=== PATIENT | female | born 1935 | race Caucasian/White ===

== ENCOUNTER 2016-08-11 14:50 | Emergency (ER) | payer OTHER ==
[~2016-08-11] VITALS: Ht 152.4 cm; Wt 77.2 kg
--- NOTE | 2016-08-11 14:50 | NUR ---
Patient BIBA BLS, transferred to bed 5. RN evaluating patient at bedside.
[2016-08-11 14:54] VITALS: BP 137/76
--- NOTE | 2016-08-11 15:05 | NUR ---
81/F BIBA C/O MIGRAINE x 2 WEEKS. EMS STATES PT WAS SEEN AT [facility] ER 2 DAYS AGO. HX: BILAT KNEE SURGERY 4 YEARS AGO, SEIZURE . DENIES N/V/D; SKIN IS PINK/WARM/DRY; AAOX4 WITH EVEN AND STEADY GAIT; LUNGS CLEAR BL; HR EVEN AND REGULAR; PT DENIES ANY FEVER, CP, SOB, OR COUGH AT THIS TIME; PATIENT STATES PAIN OF 7/10 AT THIS TIME; VSS; PATIENT POSITIONED FOR COMFORT; HOB ELEVATED; BEDRAILS UP X2; BED DOWN. ER MD MADE AWARE OF PT STATUS.
--- NOTE | 2016-08-11 15:15 | NUR ---
AAO PT BEING ASSESS BY DR HENRY AT BEDSIDE ON MONITOR
[2016-08-11] MEDS ORDERED: HYDROcodone/APAP 5/325 MG 1 TAB TAB PO ONE (15:25)
[2016-08-11] MEDS ORDERED: LIDOCAINE 1% 500 MG/50 ML VIAL INJ ONE (15:25)
[2016-08-11 16:07] LABS: BASOPHILS # (AUTO) 0.2 K/uL (0.00-0.22); EOSINOPHILS # (AUTO) 0.1 K/uL (0-0.4); EOSINOPHILS % (AUTO) 1.2 % (0.0-4.0); HEMATOCRIT 40.3 % (36-48); HEMOGLOBIN 13.3 g/dL (12.0-16.0); LYMPHOCYTES # (AUTO) 1.6 K/uL (2.5-16.5); MEAN CORPUSCULAR HEMOGLOBIN 32 pg (27-31); MEAN CORPUSCULAR HGB CONC 33 g/dL (33-37); MEAN CORPUSCULAR VOLUME 97 fL (80-94); MONOCYTES # (AUTO) 0.4 K/uL (0.8-1.0); MONOCYTES % (AUTO) 7.8 % (1.7-9.3); NEUTROPHILS # (AUTO) 2.7 K/uL (1.8-7.7); PLATELET COUNT (AUTO) 219 K/uL (140-450); RED BLOOD CELL COUNT(AUTO) 4.14 MIL/uL (4.20-5.40); RED CELL DISTRIBUTION WIDTH 12.1 % (11.6-13.7)
[2016-08-11 16:26] LABS: PARTIAL THROMBOPLASTIN TIME 29.2 secs (22-35.6); PROTHROMBIN TIME 10.6 secs (10.8-13.4)
[2016-08-11 16:27] LABS: ANION GAP 11.4 (8-16); CALCIUM 9.2 mg/dL (8.5-10.1); CARBON DIOXIDE 27.7 mmol/L (21-32); CHLORIDE 103 mmol/L (98-107); CREATININE 0.9 mg/dL (0.6-1.3); GLUCOSE 110 mg/dL (74-106); POTASSIUM 3.1 mmol/L (3.5-5.1); SODIUM SERUM 139 mmol/L (136-145); UREA NITROGEN, BLOOD 19 mg/dL (7-18)
[2016-08-11 16:31] LABS: ALANINE AMINOTRANSFERASE 15 U/L (12-78); ALBUMIN 3.8 g/dL (3.4-5.0); ALKALINE PHOSPHATASE 83 U/L (46-116); ASPARTATE AMINOTRANSFERASE 17 U/L (15-37); TOTAL BILIRUBIN 0.4 mg/dL (0.0-1.0); TOTAL PROTEIN, SERUM 7.1 g/dL (6.4-8.2)
[2016-08-11 17:13] LABS: PHENYTOIN (DILANTIN) 8.8 ug/ml (10.0-20.0)
[2016-08-11] MEDS ORDERED: POTASSIUM CHLORIDE 10 MEQ TABER PO ONE (17:20)
--- NOTE | 2016-08-11 17:33 | NUR ---
Dr. Yu re-evaluating patient at bedside.
--- NOTE | 2016-08-11 18:00 | NUR ---
Patient discharged with v/s stable. Written and verbal after care instructions given and explained. Patient verbalized understanding. Wheel Chair Assisted to LOBBY WAITING FOR DAUGHTER TO PICKUP. SECURITY CALLED FOR SHOES FOR PT. All questions addressed prior to discharge. Advised to follow up with PMD.
[2016-08-11] MEDS ORDERED: KETOROLAC 60 MG/2 ML VIAL IM ONE (18:35)
--- NOTE | 2016-08-11 18:40 | NUR ---
PT REQUESTED FOR PAIN MEDICATION, TORADOL GIVEN IM PER DR MOORE Addendum: 08/11/16 at 1902 by SERENE AFTER WHEEL CHAIR ASSISTED TO THE [facility] PT C/O PAIN RT SHOULDER 12/01, CRYING, DR HENRY NOTIFIED, ORDERED TORADOL GIVEN IM RT GLUT MAX
[2016-08-11 18:55] VITALS: BP 144/84
--- NOTE | 2016-08-11 18:55 | NUR ---
Patient discharged with v/s stable. Written and verbal after care instructions given and explained. Patient verbalized understanding. Wheel Chair Assisted with to car. All questions addressed prior to discharge. Advised to follow up with PMD. @ 1840 GIVEN 60MG TORADOL IM RT GLUT MAX, D/T C/O PAIN POST MEDICATION 2/10 PAIN LEVEL SPO2 97% RA, HR 98, BP 144/84 D/C ASSISTED WITH WHEEL CHAIR TO CAR WITH DAUGHTER
== END 2016-08-11 18:00 | disposition home or self-care (01) ==
LOC: MED 14:50
DX: G44.209 Tension-type headache, unspecified, not intractable (principal); E87.6 Hypokalemia; M62.830 Muscle spasm of back; M19.90 Unspecified osteoarthritis, unspecified site; Z88.6 Allergy status to analgesic agent; Z96.653 Presence of artificial knee joint, bilateral
CPT/HCPCS: 20553; 36415; 71010; 80053; 80184; 80185; 84484; 85025; 85610; 85651; 85730; 93005; 96372; 99285; J1885; J2001; Q0092

== ENCOUNTER 2019-01-30 21:16 | Inpatient (IN) | payer OTHER, MEDICAID ==
[~2019-01-30] VITALS: Ht 152.4 cm; Wt 54.0 kg
--- NOTE | 2019-01-30 21:17 | NUR ---
PT MARIA M ORANTESS. TAKEN TO BED 4
[2019-01-30 21:21] VITALS: BP 140/90
--- NOTE | 2019-01-30 21:22 | NUR ---
Dr. Amaya evaluating patient at bedside.
--- NOTE | 2019-01-30 21:35 | NUR ---
ASSESSMENT COMPLETE AT THIS TIME. PATIENT SUPINE IN BED, HEAD OF BED ELEVATED 45 DEGREES. PATIENT HOOKED UP TO MONITOR. WILL MONITOR.
[2019-01-30] MEDS ORDERED: diphenhydrAMINE 12.5 MG/5 ML UDC PO ONE (21:50)
--- NOTE | 2019-01-30 21:50 | NUR ---
X-Ray at bedside.
--- NOTE | 2019-01-30 22:10 | NUR ---
LAB AT BEDSIDE.
[2019-01-30 22:27] LABS: BASOPHILS % (AUTO) 0.6 % (0.0-2.0); EOSINOPHILS # (AUTO) 0.1 K/uL (0-0.4); HEMOGLOBIN 11.3 g/dL (12.0-16.0); LYMPHOCYTES # (AUTO) 0.9 K/uL (2.5-16.5); LYMPHOCYTES % (AUTO) 19.1 % (20.5-51.1); MEAN CORPUSCULAR HEMOGLOBIN 35 pg (27-31); MEAN CORPUSCULAR HGB CONC 34 g/dL (33-37); MEAN CORPUSCULAR VOLUME 100.8 fL (80-94); MONOCYTES # (AUTO) 0.5 K/uL (0.8-1.0); MONOCYTES % (AUTO) 10.8 % (1.7-9.3); NEUTROPHILS # (AUTO) 3.4 K/uL (1.8-7.7); NEUTROPHILS % (AUTO) 68.5 % (42.2-75.2); PLATELET COUNT (AUTO) 288 K/uL (140-450); RED BLOOD CELL COUNT(AUTO) 3.28 MIL/uL (4.20-5.40); RED CELL DISTRIBUTION WIDTH 12.4 % (11.6-13.7); WHITE BLOOD COUNT (AUTO) 4.9 K/uL (4.8-10.8)
[2019-01-30 22:47] LABS: ALBUMIN 3.6 g/dL (3.4-5.0); ANION GAP 11.5 (8-16); ASPARTATE AMINOTRANSFERASE 13 U/L (15-37); CARBON DIOXIDE 29.3 mmol/L (21-32); CHLORIDE 91 mmol/L (98-107); CREATININE 0.8 mg/dL (0.6-1.3); GLUCOSE 105 mg/dL (74-106); POTASSIUM 3.8 mmol/L (3.5-5.1); SODIUM SERUM 128 mmol/L (136-145); TOTAL BILIRUBIN 0.5 mg/dL (0.0-1.0); UREA NITROGEN, BLOOD 27 mg/dL (7-18)
[2019-01-30 22:52] LABS: CREATINE KINASE MB 1.4 ng/mL (0-3.6)
[2019-01-30] MEDS ORDERED: NACL 0.9% 1,000 ML IV ONE (23:25)
[2019-01-30] MEDS ORDERED: DOCUSATE SODIUM 100 MG GELCAP PO PRN (23:30)
[2019-01-30] MEDS ORDERED: ACETAMINOPHEN 325 MG TAB PO PRN (23:30)
[2019-01-30] MEDS ORDERED: ONDANSETRON 4 MG/2 ML VIAL IM/IVP PRN (23:30)
[2019-01-31 00:03] LABS: PHOSPHORUS 4.5 mg/dL (2.5-4.9); THYROID STIMULATING HORMONE 0.73 uIU/mL (0.34-3.74)
[2019-01-31] MEDS ORDERED: ALBUTEROL SULFATE/IPRATROPIU 3 ML SOL IH PRN (00:15)
--- NOTE | 2019-01-31 00:27 | NUR ---
PATIENT ADMITTED TO BED 128-B IN THE TELE UNIT UNDER THE CARE OF DR. YIP. PATIENT TAKEN IN [facility] ON MONITOR WITH EMT. VSS DURING TRANSPORT. REPORT GIVEN TO ОЛЬГА SALDANA.
[2019-01-31] MEDS ORDERED: LOSA25TA32 PO (00:34)
[2019-01-31] MEDS ORDERED: ORE25 PO (00:34)
[2019-01-31] MEDS ORDERED: TRIA55SP11 NS (00:34)
[2019-01-31] MEDS ORDERED: ATRN INH (00:34)
[2019-01-31] MEDS ORDERED: LORA10TA19 PO (00:34)
[2019-01-31] MEDS ORDERED: [UNRECOGNIZED DRUG - CODE] PO (00:34)
[2019-01-31] MEDS ORDERED: MAG-17 PO (00:35)
[2019-01-31] MEDS ORDERED: ACET-2619 PO ×2 (00:35)
[2019-01-31] MEDS ORDERED: TRAM50TA1 PO (00:35)
[2019-01-31] MEDS ORDERED: BUDE1AER2 IH (00:35)
[2019-01-31] MEDS ORDERED: POTA10TE30 PO (00:35)
[2019-01-31] MEDS ORDERED: PARO10TA8 PO (00:35)
[2019-01-31] MEDS ORDERED: PHEN100C3 PO (00:35)
[2019-01-31] MEDS ORDERED: PB97.2 PO (00:36)
[2019-01-31 00:38] VITALS: BP 143/61
--- NOTE | 2019-01-31 00:40 | NUR ---
PT ADMITTED FROM ED. PATIENT AWAKE AND ALERT. PT ON 2L NC. NO SOB AT THIS TIME. PATIENT PLACED ON TELE MONITORING. SKIN IS INTACT. FALL PRECAUTIONS IN PLACE
[2019-01-31 00:49] LABS: PROTHROMBIN TIME 9.7 secs (10.8-13.4)
[2019-01-31] MEDS ORDERED: MELATONIN 3 MG TAB PO PRN (00:55)
[2019-01-31] MEDS: NACL 0.9% 1,000 ML IV SCH ×2 (00:59→04:29)
--- NOTE | 2019-01-31 01:00 | NUR ---
PT REPORTS OF LEG CRAMPS. MD IN THE ROOM EVALUATING THE PATIENT
[2019-01-31] MEDS ORDERED: ACETAMINOPHEN 325 MG TAB PO PRN (02:10)
[2019-01-31] MEDS ORDERED: PHENYTOIN 100 MG/2 ML VIAL IVP ONE (02:40)
[2019-01-31 02:57] LABS: ANION GAP 11.9 (8-16); CARBON DIOXIDE 26.4 mmol/L (21-32); CHLORIDE 95 mmol/L (98-107); CREATININE 0.7 mg/dL (0.6-1.3); GLUCOSE 103 mg/dL (74-106); POTASSIUM 3.3 mmol/L (3.5-5.1); SODIUM SERUM 130 mmol/L (136-145); UREA NITROGEN, BLOOD 20 mg/dL (7-18)
[2019-01-31] MEDS ORDERED: traZODone 50 MG TAB PO SCH (03:00)
[2019-01-31] MEDS ORDERED: NACL 0.9% 1,000 ML IV ONE (03:00)
[2019-01-31 03:22] LABS: APPEARANCE,URINE CLEAR (CLEAR); BILIRUBIN,URINE NEGATIVE (NEGATIVE); BLOOD, URINE NEGATIVE (NEGATIVE); COLOR,URINE YELLOW (YELLOW); LEUKOCYTE ESTERASE ,URINE NEGATIVE (NEGATIVE); NITRITE, URINE NEGATIVE (NEGATIVE); UGLUCOSE NEGATIVE (NEGATIVE)
[2019-01-31 03:47] LABS: BARBITURATE, URINE POS. ng/ml (NEG <=200); BENZODIAZEPINE, URINE NEG. ng/mL (NEG <=200); CANNABINOID, URINE NEG. ng/mL (NEG <=50); COCAINE, URINE NEG. ng/mL (NEG <=300); OPIATE, URINE NEG. ng/mL (NEG <=2000); PHENCYCLIDINE SCREEN,URINE NEG. ng/mL (NEG <=25)
[2019-01-31 04:00] VITALS: BP 147/67
[2019-01-31] MEDS ORDERED: PHENYTOIN 100 MG/2 ML VIAL IVP SCH (04:00)
[2019-01-31] MEDS ORDERED: traMADol 50 MG TAB PO PRN (06:00)
[2019-01-31] MEDS ORDERED: traMADol 50 MG TAB PO SCH (06:00)
[2019-01-31 06:06] LABS: BASOPHILS % (AUTO) 0.3 % (0.0-2.0); EOSINOPHILS # (AUTO) 0.1 K/uL (0-0.4); EOSINOPHILS % (AUTO) 1.3 % (0.0-4.0); HEMATOCRIT 30.7 % (36-48); HEMOGLOBIN 10.5 g/dL (12.0-16.0); LYMPHOCYTES # (AUTO) 0.8 K/uL (2.5-16.5); LYMPHOCYTES % (AUTO) 17.5 % (20.5-51.1); MEAN CORPUSCULAR HEMOGLOBIN 35 pg (27-31); MEAN CORPUSCULAR HGB CONC 34 g/dL (33-37); MEAN CORPUSCULAR VOLUME 101.2 fL (80-94); MONOCYTES # (AUTO) 0.4 K/uL (0.8-1.0); MONOCYTES % (AUTO) 7.8 % (1.7-9.3); NEUTROPHILS # (AUTO) 3.3 K/uL (1.8-7.7); NEUTROPHILS % (AUTO) 73.1 % (42.2-75.2); PLATELET COUNT (AUTO) 240 K/uL (140-450); RED BLOOD CELL COUNT(AUTO) 3.04 MIL/uL (4.20-5.40); RED CELL DISTRIBUTION WIDTH 12.9 % (11.6-13.7); WHITE BLOOD COUNT (AUTO) 4.5 K/uL (4.8-10.8)
[2019-01-31 06:19] LABS: MAGNESIUM 1.9 mg/dL (1.8-2.4); PHOSPHORUS 3.7 mg/dL (2.5-4.9)
[2019-01-31 06:21] LABS: CHOL/HDL RATIO 1.7 (1-4.5)
[2019-01-31 06:24] LABS: CARBON DIOXIDE 26.5 mmol/L (21-32); CHLORIDE 98 mmol/L (98-107); CREATININE 0.7 mg/dL (0.6-1.3); GLUCOSE 108 mg/dL (74-106); POTASSIUM 3.5 mmol/L (3.5-5.1); SODIUM SERUM 133 mmol/L (136-145); UREA NITROGEN, BLOOD 16 mg/dL (7-18)
[2019-01-31] MEDS: ALBUTEROL SULFATE/IPRATROPIU 3 ML SOL IH SCH ×3 (07:00→19:00)
--- NOTE | 2019-01-31 07:29 | NUR ---
PT REPORT GIVEN AT BEDSIDE. PATIENT ENDORSED IN STABLE CONDITION
--- NOTE | 2019-01-31 07:30 | NUR ---
RECIEVED PATIENT FROM CONE MACHINE OPERATOR NURSE. PATIENT IS SLEEPING AT THIS TIME. SLOVENIAN SPEAKING ONLY. SEIZURE PRECAUTION IN PLACE. NO SIGNS OF DISTRESS NOTED. RESPIRATIONS EVEN AND UNLABORED, ON 2L O2 VIA NC. IV LEFT AC RUNNING 0.9% NS AT 60 ML/HR. IV PATENT AND INTACT. SKIN INTACT. DIET MECHANICAL SOFT. BED IN LOW POSITION. CALL LIGHT WITHIN REACH. SIDE RAILS UP X2. WILL CONTINUE TO MONITOR.
[2019-01-31 08:00] VITALS: BP 138/55
[2019-01-31] MEDS: LORATADINE 10 MG TAB PO SCH (08:59)
[2019-01-31] MEDS: LOSARTAN 25 MG TAB PO SCH ×2 (08:59→20:27)
[2019-01-31] MEDS: PHENYTOIN 100 MG CAPER PO SCH ×3 (08:59→16:22)
[2019-01-31] MEDS: POTASSIUM CHLORIDE 10 MEQ TABER PO SCH (09:00)
[2019-01-31] MEDS ORDERED: HYDROCHLOROTHIAZIDE 25 MG TAB PO SCH (09:00)
[2019-01-31] MEDS ORDERED: DICLOFENAC 75 MG TABEC PO SCH (09:00)
--- NOTE | 2019-01-31 09:14 | NUR ---
ADMINISTERED MORNING MEDICATIONS. PATIENT IS EDUCATED ON MEDICATIONS AND SIDE EFFECTS. PATIENT TOLERATED WELL. BED IN LOW POSITION. CALL LIGHT WITHIN REACH. WILL CONTINUE TO MONITOR.
[2019-01-31] MEDS: PARoxetine 10 MG TAB PO SCH (09:18)
[2019-01-31] MEDS ORDERED: DICLOFENAC 25 MG TABEC PO SCH ×2 (09:25→10:00)
--- NOTE | 2019-01-31 09:59 | NUR ---
PATIENT HAS BEEN SCREENED AND CATEGORIZED HIGH NUTRITION RISK. PATIENT WILL BE SEEN WITHIN 1-2 DAYS OF ADMISSION. 01/31/19-02/01/[address]
--- NOTE | 2019-01-31 10:27 | NUR ---
PATIENT IS RESTING AT THIS TIME. NO COMPLAINTS OF PAIN. REQUESTED MORE BLANKETS. GIVEN WARM BLANKETS. WILL CONTINUE TO MONITOR. BED IN LOW POSITION. CALL LIGHT WITHIN REACH.
[2019-01-31 12:00] VITALS: BP 138/66
--- NOTE | 2019-01-31 12:27 | NUR ---
GIVEN DILANTIN PO. EXPLAINED PURPOSE AND SIDE EFFECTS. PATIENT TOLERATED WELL. WILL CONTINUE TO MONITOR. BED IN LOW POSITION. CALL LIGHT WITHIN REACH.
[2019-01-31] MEDS ORDERED: GABAPENTIN 300 MG CAP PO SCH (13:55)
--- NOTE | 2019-01-31 14:30 | NUR ---
PATIENT IS SLEEPING AT THIS TIME. NO SIGNS OF DISTRESS NOTED. WILL CONTINUE TO MONITOR.
[2019-01-31 16:00] VITALS: BP 131/67
[2019-01-31] MEDS: HYDROCHLOROTHIAZIDE 25 MG TAB PO SCH (16:24)
--- NOTE | 2019-01-31 16:26 | NUR ---
ADMINISTERED DILANTIN AND ORETIC PO. EXPLAINED INDICATIONS AND SIDE EFFECTS. PATIENT TOLERATED WELL. WILL CONTINUE TO MONITOR.
--- NOTE | 2019-01-31 18:38 | NUR ---
PATIENT IS SLEEPING AT THIS TIME. NO SIGNS OF DISTRESS NOTED. WILL CONTINUE TO MONITOR.
--- NOTE | 2019-01-31 19:15 | NUR ---
ENDORSED PT TO CYTOTECHNOLOGIST/CYTOLOGY SUPERVISOR NURSE FOR CONTINUITY OF CARE.
--- NOTE | 2019-01-31 19:16 | NUR ---
RECEIVED BEDSIDE REPORT FROM DAY RN. PT IS SLEEPING ON NC 2L O2. RESPIRATIONS ARE EQUAL AND UNLABORED. C/C SOB. PER RN SAT 97_99% ON RA NO C/C ON SOB THROUGHOUT SHIFT. IV ON LAC22G INFUSING NS AT 70M/H. SKIN IS INTACT. [facility] BUT ABLE TO SWALLOW PILLS. SAFETY MEASURES ARE IN PLACE. CALL LIGHT IS WITHIN REACH.
[2019-01-31 20:00] VITALS: BP 121/59
--- NOTE | 2019-01-31 20:27 | NUR ---
VITAL SIGNS ARE STABLE: 121/59 HR 78 RR18 99% ON 2L NC. PATIENT IS VERY LETHARGIC AND DIFFICULT TO WAKE UP. PATIENT OPEN EYES AND IS AAOX2. STATES, "QUE, QUIERO DORMIR." ADMINISTERED BRAD MEDICATIONS AND HELD DESYREL D/T LETHARGY.
[2019-01-31] MEDS: traZODone 50 MG TAB PO SCH (20:36)
--- NOTE | 2019-01-31 22:15 | NUR ---
PATIENT IS SLEEPING COMFORTABLY IN BED. CHEST RISE AND FALL. ALL SAFETY MEASURES ARE IN PLACE. WILL CONTINUE TO MONITOR.
[2019-02-01] VITALS: BP 112/50
[2019-02-01] MEDS: NACL 0.9% 1,000 ML IV SCH
--- NOTE | 2019-02-01 | NUR ---
VITAL SIGNS ARE WITHIN NORMAL LIMITS. NEW BAG OF IVF NOW INFUSING PER ORDERS. PATIENT WAS CLEANED AND REPOSITION FOR COMFORT. ALL NEEDS MET AT THIS TIME. SAFETY MEASURES ARE IN PLACE. CALL LIGHT IS WITHIN REACH.
--- NOTE | 2019-02-01 01:46 | NUR ---
PATIENT IS SLEEPING COMFORTABLY IN BED. CHEST RISE AND FALL. NO S/S OF DISTRESS. CALL LIGHT IS WITHIN REACH.
--- NOTE | 2019-02-01 03:45 | NUR ---
VITAL SIGNS ARE STABLE. SAFETY MEASURES ARE IN PLACE. CALL LIGHT IS WITHIN REACH
[2019-02-01 04:00] VITALS: BP 121/55
--- NOTE | 2019-02-01 04:00 | NUR ---
PATIENT VERY CONFUSED TRYING TO GET OUT OF BED. REORIENTED PATIENT TO ROOM AND STAFF. PT INSISTING TO GET UP AND WALK. PATIENT REMOVED GOWN, NC, AND ATTEMPT TO REMOVE IV. ASSIST PT TO LAY BACK IN BED. PT WAS CLEANED AND REPOSITION FOR COMFORT. BED ALARM ON. SAFETY MEASURES ARE IN PLACE. WILL CONTINUE TO MONITOR.
--- NOTE | 2019-02-01 05:00 | NUR ---
MOVED PATIENT TO ROOM 121B CLOSER TO NURSES STATION D/T CONFUSION AND ATTEMPTING TO GET OUT OF BED. PT TOLERATED WELL. ORIENTED PATIENT TO ROOM AND STAFF. BED ALARM IS ON. CALL LIGHT IS WITHIN REACH. WILL CONTINUE TO MONITOR.
[2019-02-01 06:10] LABS: MAGNESIUM 1.8 mg/dL (1.8-2.4)
[2019-02-01 06:20] LABS: T4 (THYROXINE) 7.8 ug/dL (4.5-12.0)
--- NOTE | 2019-02-01 06:20 | NUR ---
PATIENT STILL CONFUSED TRYING TO GET OUT OF BED REQUESTING TO CALL NICHUCK MCCALLIA. CALLED TRESA TO TRY AND CALM HER. TALKED TO NIECE AND EXPLAINED PT IS TOO WEAK TO WALK BUT DESPITE EXPLAINING TO PT SHE KEPT TRYING TO GET OUT OF BED. THEREFORE WE MOVED HER TO A ROOM CLOSER TO THE NURSES STATION, MAO VERBALIZED UNDERSTANDING AND EXPLAINED TO PT. PT IS MORE CALM AFTER SPEAKING WITH HER NIECE ON THE PHONE. DR. BARRAZA EXAMINE PT. PER PT STATES SHE DID NOT SLEEP ALL NIGHT. I EXPLAINED TO DOCTOR SHE WAS ASLEEP FROM BEGINNING OF MY SHIFT AT 1900 AND WOKE UP APPROX [phone]. SAFETY MEASURES ARE IN PLACE. CALL LIGHT IS WITHIN REACH.
[2019-02-01 06:47] LABS: EOSINOPHILS # (AUTO) 0.1 K/uL (0-0.4); EOSINOPHILS % (AUTO) 2.6 % (0.0-4.0); HEMOGLOBIN 10.3 g/dL (12.0-16.0); LYMPHOCYTES # (AUTO) 0.7 K/uL (2.5-16.5); MEAN CORPUSCULAR HEMOGLOBIN 36 pg (27-31); MEAN CORPUSCULAR HGB CONC 36 g/dL (33-37); MONOCYTES # (AUTO) 0.2 K/uL (0.8-1.0); MONOCYTES % (AUTO) 8.3 % (1.7-9.3); NEUTROPHILS # (AUTO) 1.8 K/uL (1.8-7.7); NEUTROPHILS % (AUTO) 63.1 % (42.2-75.2); PLATELET COUNT (AUTO) 251 K/uL (140-450); RED BLOOD CELL COUNT(AUTO) 2.85 MIL/uL (4.20-5.40); WHITE BLOOD COUNT (AUTO) 2.9 K/uL (4.8-10.8)
[2019-02-01 07:17] LABS: ANION GAP 11.7 (8-16); CARBON DIOXIDE 25.7 mmol/L (21-32); CHLORIDE 98 mmol/L (98-107); CREATININE 0.7 mg/dL (0.6-1.3); GLUCOSE 95 mg/dL (74-106); POTASSIUM 3.4 mmol/L (3.5-5.1); SODIUM SERUM 132 mmol/L (136-145)
--- NOTE | 2019-02-01 07:18 | NUR ---
GAVE BEDSIDE REPORT TO DAY RN. PT ENDORSED IN STABLE CONDITION.
--- NOTE | 2019-02-01 07:19 | NUR ---
RECEIVED PATIENT FROM TIRE STRIPPER NURSE. PATIENT IS AWAKE AND RESTING. AOX2 TO NAME AND DATE. NO SIGNS OF DISTRESS NOTED. PATIENT DENIES PAIN. VITAL SIGNS 118/73, HR 91, RR 18, TEMP 97.8 ORAL, O2SAT 97% RA. IV ON LEFT AC G 22 RUNNING 70ML/HR 0.9% NS. IV PATENT AND INTACT. SKIN INTACT NO EDEMA PRESENT. BOWEL SOUNDS PRESENT X2. CALL LIGHT WITHIN REACH. BED IN LOW POSITION. WILL CONTINUE TO MONITOR.
[2019-02-01 08:00] VITALS: BP 150/60
[2019-02-01 08:09] LABS: FOLIC ACID 10.9 ng/mL (>3.0)
[2019-02-01] MEDS ORDERED: traMADol 50 MG TAB PO PRN (08:17)
[2019-02-01] MEDS: ALBUTEROL SULFATE/IPRATROPIU 3 ML SOL IH SCH ×4 (08:39→20:09)
[2019-02-01 08:57] LABS: UREA NITROGEN, BLOOD 14 mg/dL (7-18)
[2019-02-01] MEDS: LORATADINE 10 MG TAB PO SCH (09:00)
[2019-02-01] MEDS: PHENYTOIN 100 MG CAPER PO SCH ×3 (09:00→16:52)
[2019-02-01] MEDS: POTASSIUM CHLORIDE 10 MEQ TABER PO SCH (09:00)
[2019-02-01] MEDS: GABAPENTIN 300 MG CAP PO SCH (09:01)
[2019-02-01] MEDS: LOSARTAN 25 MG TAB PO SCH ×2 (09:07→21:20)
[2019-02-01] MEDS: DICLOFENAC 25 MG TABEC PO SCH (09:08)
[2019-02-01] MEDS: PARoxetine 10 MG TAB PO SCH (09:12)
--- NOTE | 2019-02-01 09:16 | NUR ---
GIVEN MORNING MEDICATIONS. BP 124/65. HR 90. O2SAT 99% RA. EDUCATED PATIENTS ON PURPOSE AND SIDE EFFECTS. PATIENT VERBALIZED UNDERSTANDING. WILL CONTINUE TO MONITOR. CALL LIGHT WITHIN REACH. BED IN LOW POSITION.
[2019-02-01 12:00] VITALS: BP 120/58
--- NOTE | 2019-02-01 12:00 | NUR ---
PT EVALUATION WAS BEING DONE TO PT NOW, SEEN PT AMBULATING TO HALLWAY WITH THE ASSISTANCE OF THE PT AND WITH A STEADY GAIT. WILL MONITOR PT.
--- NOTE | 2019-02-01 12:21 | NUR ---
GIVEN DILATIN PO. EDUCATED PATIENT ON MEDICATION. PATIENT IS EATING AT THIS TIME. DENIES ANY PAIN. WILL CONTINUE TO MONITOR.
--- NOTE | 2019-02-01 14:05 | NUR ---
PATIENT IS RESTING AT THIS TIME. NO DISTRESS NOTED AT THIS TIME. WILL CONTINUE TO MONITOR.
--- NOTE | 2019-02-01 14:23 | NUR ---
02/01/19 RD INITIAL ASSESSMENT COMPLETED PLEASE REFER TO NUTRITION ASSESSMENT UNDER CARE ACTIVITY FOR ESTIMATED NUTRITIONAL NEEDS. 1. RECOMMEND NECTAR-THICKENED LIQUIDS PER SWALLOW EVALUATION 2. CONTINUE MECHANICAL SOFT NA 2GM WITH ENSURE TID 3. ENCOURAGE INCREASING PO INTAKE 4. RD TO FOLLOW-UP 2-3 DAYS, HIGH RISK [facility], ALEXA
[2019-02-01 16:00] VITALS: BP 118/49
[2019-02-01] MEDS: HYDROCHLOROTHIAZIDE 25 MG TAB PO SCH (16:54)
--- NOTE | 2019-02-01 16:55 | NUR ---
ADMINISTERED MEDICATIONS ORETIC AND DILANTIN. EDUCATED PATIENTS ON MEDICATIONS. VERBALIZED UNDERSTANDING. WILL CONTINUE TO MONITOR.
--- NOTE | 2019-02-01 18:00 | NUR ---
PATIENT IS REQUESTING FOR SLEEPING MEDICATION, HOWEVER, MEDICATION IS NOT DUE UNTIL 0900.
--- NOTE | 2019-02-01 19:10 | NUR ---
ENDORSED PATIENT TO BENEFITS CONSULTING ANALYST NURSE FOR CONTINUITY OF CARE. PATIENT IS IN STABLE CONDITION.
[2019-02-01 20:00] VITALS: BP 138/94
--- NOTE | 2019-02-01 20:00 | NUR ---
ASSUMED CARE. RECEIVED ALERT,CONFUSED. AFEBRILE, NOT IN ACUTE DISTRESS. NO PAIN OR DISCOMFORT NOTED. IV LINE NOTED TO BE OUT. WILL ESTABLISH A IV NEW LINE. SIDE RAILS PADDED FOR SEIZURE PRECAUTION. SAO2=96% ON ROOM AIR. RT AT BEDSIDE TO GIVE BREATHING TREATMENTS. SINUS RHYTHM AT 80'S/MINUTE ON THE MONITOR. VS STABLE, WILL CONTINUE TO MONITOR. NEEDS ATTENDED.
[2019-02-01] MEDS: traZODone 50 MG TAB PO SCH (21:19)
--- NOTE | 2019-02-01 21:22 | NUR ---
DUE MEDICATIONS GIVEN SCHEDULED.
--- NOTE | 2019-02-01 21:50 | NUR ---
GAUGE 20 IV LINE ESTABLISHED TO THE LEFT WRIST. IV FLUID NORMAL SALINE RESTARTED AT 70 ML/HR.
[2019-02-02] VITALS: BP 118/61
--- NOTE | 2019-02-02 | NUR ---
AWAKE, NOT IN ANY KIND OF DISTRESS. NO PAIN OR DISCOMFORT NOTED. SIDE RAILS UP, CALL LIGHT WITHIN REACH. KEPT WARM AND COMFORTABLE. VS REMAIN STABLE.
[2019-02-02] MEDS: NACL 0.9% 1,000 ML IV SCH ×2 (01:56→08:20)
[2019-02-02 04:00] VITALS: BP 143/53
--- NOTE | 2019-02-02 04:00 | NUR ---
AWAKE, NO SIGNIFICANT CHANGE. VS REMAIN STABLE. WILL CONTINUE TO MONITOR.
[2019-02-02 06:01] LABS: BASOPHILS % (AUTO) 0.5 % (0.0-2.0); EOSINOPHILS # (AUTO) 0.1 K/uL (0-0.4); EOSINOPHILS % (AUTO) 3.1 % (0.0-4.0); HEMATOCRIT 30.9 % (36-48); HEMOGLOBIN 10.5 g/dL (12.0-16.0); LYMPHOCYTES # (AUTO) 0.9 K/uL (2.5-16.5); LYMPHOCYTES % (AUTO) 26.6 % (20.5-51.1); MEAN CORPUSCULAR HEMOGLOBIN 35 pg (27-31); MEAN CORPUSCULAR HGB CONC 34 g/dL (33-37); MEAN CORPUSCULAR VOLUME 102.4 fL (80-94); MONOCYTES # (AUTO) 0.2 K/uL (0.8-1.0); MONOCYTES % (AUTO) 7.3 % (1.7-9.3); NEUTROPHILS # (AUTO) 2.1 K/uL (1.8-7.7); NEUTROPHILS % (AUTO) 62.5 % (42.2-75.2); PLATELET COUNT (AUTO) 231 K/uL (140-450); RED BLOOD CELL COUNT(AUTO) 3.01 MIL/uL (4.20-5.40); RED CELL DISTRIBUTION WIDTH 12.7 % (11.6-13.7); WHITE BLOOD COUNT (AUTO) 3.4 K/uL (4.8-10.8)
[2019-02-02 06:41] LABS: ANION GAP 9.8 (8-16); CHLORIDE 98 mmol/L (98-107); CREATININE 0.7 mg/dL (0.6-1.3); GLUCOSE 96 mg/dL (74-106); POTASSIUM 3.8 mmol/L (3.5-5.1); SODIUM SERUM 132 mmol/L (136-145); UREA NITROGEN, BLOOD 22 mg/dL (7-18)
--- NOTE | 2019-02-02 07:04 | NUR ---
ENDORSED CARE TO RACIEL NEVAREZ.
[2019-02-02 07:05] LABS: MAGNESIUM 1.9 mg/dL (1.8-2.4); PHOSPHORUS 3.1 mg/dL (2.5-4.9)
--- NOTE | 2019-02-02 07:12 | NUR ---
ENDORSED CARE TO AUBREY NEVAREZ.
--- NOTE | 2019-02-02 07:25 | NUR ---
REPORT RECEIVED FROM DINKEY MECHANIC NURSE FOR CONTINUATION OF CARE. BED IS IN LOWEST POSITION. PATIENT IS RESTING IN BED NO SIGNS OF DISTRESS NOTED. CALL LIGHT ON AND WITHIN REACH, WILL CONTINUE TO MONITOR.
[2019-02-02 08:00] VITALS: BP 114/54
[2019-02-02] MEDS: ALBUTEROL SULFATE/IPRATROPIU 3 ML SOL IH SCH ×2 (08:14→13:47)
[2019-02-02] MEDS: LOSARTAN 25 MG TAB PO SCH (08:44)
[2019-02-02] MEDS: PHENYTOIN 100 MG CAPER PO SCH ×3 (08:44→17:58)
[2019-02-02] MEDS: PARoxetine 10 MG TAB PO SCH (08:45)
[2019-02-02] MEDS: GABAPENTIN 300 MG CAP PO SCH (08:45)
[2019-02-02] MEDS: POTASSIUM CHLORIDE 10 MEQ TABER PO SCH (08:45)
[2019-02-02] MEDS: LORATADINE 10 MG TAB PO SCH (08:45)
[2019-02-02] MEDS: DICLOFENAC 25 MG TABEC PO SCH (08:51)
--- NOTE | 2019-02-02 09:15 | NUR ---
FREQUENT ROUNDING ON PT PT APPEARS STABLE AND IN NO APPARENT DISTRESS. ALL SAFETY MEASURES ARE IN PLACE WILL CONTINUE TO MONITOR.
--- NOTE | 2019-02-02 11:34 | NUR ---
FREQUENT ROUNDING ON PT PT APPEARS STABLE AND IN NO APPARENT DISTRESS. ALL SAFETY MEASURES ARE IN PLACE WILL CONTINUE TO MONITOR
[2019-02-02 12:00] VITALS: BP 120/50
--- NOTE | 2019-02-02 13:50 | NUR ---
FREQUENT ROUNDS MADE, BED IN LOW POSITION, CALL LIGHT ON AND WITHIN REACH. NO SIGNS OF DISTRESS NOTED. WILL CONTINUE TO MONITOR.
--- NOTE | 2019-02-02 14:24 | NUR ---
DC PLANNING PATIENT HAS A DC ORDER TO GO TO SNF FOR PHYSICAL THERAPY , DA[facility] AND CAN GO TO ROOM, #TO GIVE REPORT [phone] CALLED DAUGHTER RUSLAN NOTIFIED HER THAT [facility] IS ACCEPT[facility] HER MOTHER AND SINCE THEY ARE ARRANGING ROOM THEY WANT THE PT AFTER 7PM. RUSLAN IS OK WITH IT. Addendum: 02/02/19 at 1611 by Trish Bocanegra CM DC PLANNING: RECEIVED A CALL FROM [facility] PT CAN GO TO ROOM 122 BED 2 [facility] ARRANGED TRANSPORT WITH [place] [phone] LEAN COACH TIME AFTER 7 PM NOTIFIED RACIEL SALDANA.
--- NOTE | 2019-02-02 15:50 | NUR ---
NO SIGNS OF DISTRESS NOTED, PATIENT IS SLEEPING, OBSERVED CHEST RISE AND FALL. BED IN LOW POSITION, CALL LIGHT ON AND WITHIN REACH. WILL CONTINUE TO MONITOR. PATIENT TO DISCHARGE TO [facility] AFTER 7 PM.
--- NOTE | 2019-02-02 17:50 | NUR ---
NO SIGNS OF DISTRESS NOTED. CHEST RISE AND FALL OBSERVED.
[2019-02-02] MEDS: HYDROCHLOROTHIAZIDE 25 MG TAB PO SCH (17:59)
[2019-02-02 18:00] VITALS: BP 133/83
--- NOTE | 2019-02-02 19:34 | NUR ---
[facility] REMOVED IV BAND REMOVED IV IV TIP INTACT PT APPEARS STABLE AND IN NO APPARENT DISTRESS. ALL SAFETY MEASURES ARE IN PLACE. TRANSPORTED PT TO [facility] ROOM 122 BED 1.
== END 2019-02-02 19:25 | DRG 641 ==
LOC: MED 21:16 → MMU 23:33 → MTU 02-01 05:12
PROVIDERS: ADMIT General Practice; ATTEND General Practice
DX: E87.1 Hypo-osmolality and hyponatremia (principal); G40.909 Epilepsy, unspecified, not intractable, without status epilepticus; D53.9 Nutritional anemia, unspecified; J44.9 Chronic obstructive pulmonary disease, unspecified; E86.0 Dehydration; I10 Essential (primary) hypertension; F32.9 Major depressive disorder, single episode, unspecified; Z96.653 Presence of artificial knee joint, bilateral; Z66 Do not resuscitate; G47.00 Insomnia, unspecified; J30.9 Allergic rhinitis, unspecified; M19.90 Unspecified osteoarthritis, unspecified site; G57.93 Unspecified mononeuropathy of bilateral lower limbs; T42.0X5A Adverse effect of hydantoin derivatives, initial encounter; Z88.5 Allergy status to narcotic agent; Z90.49 Acquired absence of other specified parts of digestive tract; Z79.899 Other long term (current) drug therapy; Z82.49 Family history of ischemic heart disease and other diseases of the circulatory system; Z82.61 Family history of arthritis; Y92.89 Other specified places as the place of occurrence of the external cause
CPT/HCPCS: 36415; 36600; 71045; 80048; 80053; 80184; 80185; 80305; 81003; 82550; 82553; 82607; 82746; 82803; 83036; 83735; 83880; 84100; 84436; 84443; 84484; 85025; 85610; 85730; 87081; 93005; 94640; 96360; 97110; 97116; 97530; 99285; J1165; J1644; J7030; J7620; Q0092; Q0163